=== PATIENT | female | born 2000 | race Caucasian/White ===

== ENCOUNTER 2020-04-12 16:25 | Emergency (ER) | payer OTHER ==
[~2020-04-12] VITALS: Ht 157.5 cm; Wt 56.8 kg
[2020-04-12 16:35] VITALS: BP 129/76
[2020-04-12] MEDS ORDERED: IBUPROFEN 600 MG TABLET PO ONE (17:00)
== END 2020-04-12 17:17 | disposition home or self-care (01) ==
LOC: EMS 16:28
DX: J03.90 Acute tonsillitis, unspecified (principal)
CPT/HCPCS: 99282; Z7502; Z7610